=== PATIENT | female | born 1965 | race Two or more races ===

== ENCOUNTER 2017-11-23 18:49 | Emergency (ER) | payer MEDICARE, MEDICAID ==
[~2017-11-23] VITALS: Ht 157.5 cm; Wt 77.2 kg
[~2017-11-23 18:49] MED LIST: MED LIST UNOBTAINABL; NO HOME MEDS
[2017-11-23 19:03] VITALS: BP 131/80
[2017-11-23] MEDS ORDERED: CEPH-572 PO (19:21)
[2017-11-23] MEDS ORDERED: SULF1TAB49 PO (19:21)
[2017-11-23] MEDS ORDERED: NAPR-56 PO (19:22)
== END 2017-11-23 19:32 | disposition home or self-care (01) ==
LOC: ER 18:50
DX: L03.116 Cellulitis of left lower limb (principal); E78.00 Pure hypercholesterolemia, unspecified; G89.29 Other chronic pain; F15.90 Other stimulant use, unspecified, uncomplicated; Z98.890 Other specified postprocedural states; Z79.2 Long term (current) use of antibiotics; Z79.899 Other long term (current) drug therapy
CPT/HCPCS: 99283

== ENCOUNTER 2019-01-29 12:57 | Emergency (ER) | payer MEDICARE, MEDICAID ==
[~2019-01-29] VITALS: Ht 154.9 cm; Wt 68.0 kg
[2019-01-29] MEDS ORDERED: PENI500T2 PO (13:57)
[2019-01-29 14:05] VITALS: BP 140/85
== END 2019-01-29 14:12 | disposition home or self-care (01) ==
LOC: ER 12:58
DX: K08.89 Other specified disorders of teeth and supporting structures (principal); E78.00 Pure hypercholesterolemia, unspecified; E07.9 Disorder of thyroid, unspecified; G89.29 Other chronic pain; F17.200 Nicotine dependence, unspecified, uncomplicated; F15.90 Other stimulant use, unspecified, uncomplicated; Z79.2 Long term (current) use of antibiotics
CPT/HCPCS: 99283

== ENCOUNTER 2019-04-02 14:43 | Emergency (ER) | payer MEDICARE, MEDICAID ==
[~2019-04-02] VITALS: Ht 165.1 cm; Wt 71.8 kg
[2019-04-02 15:27] LABS: BASOPHILS # (AUTO) 0.1 X10'3 (0-0.2); BASOPHILS % (AUTO) 0.7 % (0-1); EOSINOPHILS # (AUTO) 0.8 X10'3 (0-0.9); EOSINOPHILS % (AUTO) 8.2 % (0-6); HEMATOCRIT 42.3 % (35.0-45.0); LYMPHOCYTES # (AUTO) 3.4 X10'3 (1.1-4.8); LYMPHOCYTES % (AUTO) 36.3 % (21-51); MEAN CORPUSCULAR HEMOGLOBIN 27.1 PG (27.0-31.0); MEAN CORPUSCULAR HGB CONC 33.1 g/dL (33.0-36.5); MEAN CORPUSCULAR VOLUME 81.7 FL (78-98); MEAN PLATELET VOLUME 7.1 FL (7.4-10.4); MONOCYTES # (AUTO) 0.7 X10'3 (0-0.9); NEUTROPHILS # (AUTO) 4.5 X10'3 (1.8-7.7); NEUTROPHILS % (AUTO) 47.8 % (42-75); PLATELET COUNT 454 X10'3 (140-440); RED BLOOD COUNT 5.18 X10'6 (4.20-5.60); RED CELL DISTRIBUTION WIDTH 15.3 % (11.5-14.5); WHITE BLOOD COUNT 9.5 X10'3 (4.5-11.0)
[2019-04-02 15:38] LABS: ANION GAP 6 (8-16); BLOOD UREA NITROGEN 17 MG/DL (7-18); BUN/CREATININE RATIO 16.7 (6.6-38.0); CHLORIDE 101 MMOL/L (99-107); CREATININE 1.02 MG/DL (0.40-0.90); POTASSIUM 3.7 MMOL/L (3.5-5.1); SODIUM 138 MMOL/L (135-145); TOTAL CARBON DIOXIDE 31.2 MMOL/L (24-32)
[2019-04-02 15:39] LABS: ALANINE AMINOTRANSFERASE 54 U/L (12-78); ALBUMIN 3.3 G/DL (3.4-5.0); ALBUMIN/GLOBULIN RATIO 0.6 (1.1-1.5); ALKALINE PHOSPHATASE 141 IU/L (46-116); ASPARTATE AMINO TRANSFERASE 37 U/L (10-37); BILIRUBIN,TOTAL 0.4 MG/DL (0.1-1.0); CALCIUM 9.2 MG/DL (8.5-10.1); TOTAL PROTEIN 9.1 G/DL (6.4-8.2); eGFR 57 ML/MIN
[2019-04-02 15:44] LABS: GLUCOSE 119 MG/DL (70-104)
[2019-04-02] MEDS ORDERED: famotidine 20mg tablet PO ONE (16:05)
[2019-04-02 16:39] VITALS: BP 107/66
[2019-04-02 16:50] LABS: URINE METHADONE SCREEN NEGATIVE (Neg)
[2019-04-02 16:53] LABS: CLARITY,URINE CLOUDY (Clear); COLOR,URINE YELLOW (Yellow); GLUCOSE, URINE NEGATIVE (Neg); KETONES,URINE NEGATIVE (Neg); LEUKOCYTE ESTERASE ,URINE NEGATIVE (Neg); NITRITES, URINE NEGATIVE (Neg); OCCULT BLOOD,URINE SMALL (Neg); PROTEIN,URINE NEGATIVE (Neg); UROBILINOGEN,URINE 0.2 E.U/dL (0.2-1.0)
[2019-04-02 17:02] LABS: UA COLLECTION TYPE CLN CATCH MIDSTREAM; URINE AMPHETAMINE SCREEN POSITIVE (Neg); URINE BARBITUATE SCREEN NEGATIVE (Neg); URINE BENZODIAZEPINES SCREEN NEGATIVE (Neg); URINE CANNABINOID SCREEN NEGATIVE (Neg); URINE COCAINE SCREEN NEGATIVE (Neg); URINE OPIATE SCREEN NEGATIVE (Neg); URINE PHENCYCLIDINE SCREEN NEGATIVE (Neg)
[2019-04-02 17:08] LABS: BACTERIA,URINE 1+ /HPF (Neg); MUCUS STRANDS MANY /LPF (Neg); RBC,URINE 0-2 /HPF (0-2); SQUAMOUS EPITHELIAL CELL,UR MANY /LPF (FEW); WBC,URINE 0-4 /HPF (0-4)
[2019-04-02 17:33] LABS: LIPASE 205 U/L (73-393)
== END 2019-04-02 17:59 | disposition home or self-care (01) ==
LOC: ER 14:44
DX: K29.70 Gastritis, unspecified, without bleeding (principal); G89.29 Other chronic pain; F15.10 Other stimulant abuse, uncomplicated; R00.0 Tachycardia, unspecified; E78.00 Pure hypercholesterolemia, unspecified; Z98.890 Other specified postprocedural states
CPT/HCPCS: 36415; 80053; 80305; 81001; 83690; 85025; 85610; 93005; 99284

== ENCOUNTER 2019-08-03 21:56 | Emergency (ER) | payer MEDICARE, MEDICAID ==
[~2019-08-03] VITALS: Ht 152.4 cm; Wt 70.0 kg
[2019-08-03 22:54] LABS: BASOPHILS # (AUTO) 0.1 X10'3 (0-0.2); BASOPHILS % (AUTO) 0.7 % (0-1); EOSINOPHILS # (AUTO) 0.7 X10'3 (0-0.9); EOSINOPHILS % (AUTO) 7.8 % (0-6); HEMATOCRIT 39.2 % (35.0-45.0); HEMOGLOBIN 12.9 g/dl (12.0-16.0); LYMPHOCYTES # (AUTO) 3.4 X10'3 (1.1-4.8); LYMPHOCYTES % (AUTO) 38.2 % (21-51); MEAN CORPUSCULAR HEMOGLOBIN 26.4 PG (27.0-31.0); MEAN CORPUSCULAR VOLUME 80.1 FL (78-98); MONOCYTES # (AUTO) 0.9 X10'3 (0-0.9); MONOCYTES % (AUTO) 9.8 % (2-12); NEUTROPHILS # (AUTO) 3.9 X10'3 (1.8-7.7); NEUTROPHILS % (AUTO) 43.5 % (42-75); PLATELET COUNT 477 X10'3 (140-440); RED BLOOD COUNT 4.89 X10'6 (4.20-5.60); RED CELL DISTRIBUTION WIDTH 15.2 % (11.5-14.5); WHITE BLOOD COUNT 8.9 X10'3 (4.5-11.0)
[2019-08-03 23:09] LABS: ALANINE AMINOTRANSFERASE 32 U/L (12-78); ALBUMIN 3.4 G/DL (3.4-5.0); ALBUMIN/GLOBULIN RATIO 0.7 (1.1-1.5); ALKALINE PHOSPHATASE 118 IU/L (46-116); ANION GAP 5 (8-16); ASPARTATE AMINO TRANSFERASE 36 U/L (10-37); BILIRUBIN,TOTAL 0.4 MG/DL (0.1-1.0); BLOOD UREA NITROGEN 13 MG/DL (7-18); BUN/CREATININE RATIO 12.9 (6.6-38.0); CALCIUM 9.3 MG/DL (8.5-10.1); CHLORIDE 107 MMOL/L (99-107); CREATININE 1.01 MG/DL (0.40-0.90); GLUCOSE 89 MG/DL (70-104); LIPASE 143 U/L (73-393); POTASSIUM 4.1 MMOL/L (3.5-5.1); SODIUM 143 MMOL/L (135-145); TOTAL CARBON DIOXIDE 30.8 MMOL/L (24-32); TOTAL PROTEIN 8.3 G/DL (6.4-8.2); eGFR 57 ML/MIN
[2019-08-03 23:10] LABS: CLARITY,URINE SLIGHTLY CLOUDY (Clear); COLOR,URINE YELLOW (Yellow); GLUCOSE, URINE NEGATIVE (Neg); KETONES,URINE NEGATIVE (Neg); LEUKOCYTE ESTERASE ,URINE NEGATIVE (Neg); NITRITES, URINE NEGATIVE (Neg); OCCULT BLOOD,URINE SMALL (Neg); PROTEIN,URINE NEGATIVE (Neg); UROBILINOGEN,URINE 0.2 E.U/dL (0.2-1.0)
[2019-08-03 23:11] LABS: URINE HCG NEGATIVE (NEG)
[2019-08-03 23:18] LABS: UA COLLECTION TYPE CLN CATCH MIDSTREAM
[2019-08-03 23:23] LABS: BACTERIA,URINE 2+ /HPF (Neg); MUCUS STRANDS MANY /LPF (Neg); RBC,URINE 0-2 /HPF (0-2); SQUAMOUS EPITHELIAL CELL,UR MANY /LPF (FEW); WBC,URINE 0-4 /HPF (0-4)
[2019-08-04 00:15] VITALS: BP 125/89
== END 2019-08-04 00:12 | disposition home or self-care (01) ==
LOC: ER 21:57
DX: R10.12 Left upper quadrant pain (principal); R10.13 Epigastric pain; M54.5 Low back pain; R53.82 Chronic fatigue, unspecified; E78.00 Pure hypercholesterolemia, unspecified; G89.29 Other chronic pain; F15.90 Other stimulant use, unspecified, uncomplicated
CPT/HCPCS: 36415; 76700; 80053; 81001; 81025; 83690; 85025; 99284

== ENCOUNTER 2019-08-30 19:48 | Emergency (ER) | payer MEDICARE, MEDICAID ==
[~2019-08-30] VITALS: Ht 157.5 cm; Wt 69.0 kg
[2019-08-30 20:26] VITALS: BP 128/67
[2019-08-30] MEDS ORDERED: CLIN-97 PO (20:47)
[2019-08-30] MEDS ORDERED: fluconazole 150mg tablet PO ONE (20:50)
[2019-08-30] MEDS ORDERED: NYST1000 PO (20:50)
== END 2019-08-30 21:13 | disposition home or self-care (01) ==
LOC: ER 19:49
DX: S06.890A Other specified intracranial injury without loss of consciousness, initial encounter (principal); S02.5XXA Fracture of tooth (traumatic), initial encounter for closed fracture; K05.10 Chronic gingivitis, plaque induced; B37.9 Candidiasis, unspecified; K08.89 Other specified disorders of teeth and supporting structures; E78.00 Pure hypercholesterolemia, unspecified; G89.29 Other chronic pain; F15.90 Other stimulant use, unspecified, uncomplicated; Z98.890 Other specified postprocedural states; Z79.2 Long term (current) use of antibiotics; Z79.899 Other long term (current) drug therapy; X58.XXXA Exposure to other specified factors, initial encounter; Y93.89 Activity, other specified; Y92.89 Other specified places as the place of occurrence of the external cause; Y99.8 Other external cause status
CPT/HCPCS: 99283

== ENCOUNTER 2020-04-04 20:53 | Emergency (ER) | payer MEDICARE, MEDICAID ==
[~2020-04-04] VITALS: Ht 154.9 cm; Wt 70.0 kg
[~2020-04-04 20:53] MED LIST changes: +CLIN-97 PO
[2020-04-04 21:05] VITALS: BP 108/75
== END 2020-04-04 22:21 | disposition left against medical advice (07) ==
LOC: ER 20:53
DX: M54.9 Dorsalgia, unspecified (principal); M54.2 Cervicalgia; Z53.21 Procedure and treatment not carried out due to patient leaving prior to being seen by health care provider

== ENCOUNTER 2020-07-15 07:51 | Emergency (ER) | payer MEDICARE, MEDICAID ==
[~2020-07-15] VITALS: Ht 154.9 cm; Wt 70.0 kg
[2020-07-15 07:56] VITALS: BP 153/84
[2020-07-15] MEDS ORDERED: METH4TAB81 PO ×2 (08:11→08:43)
[2020-07-15] MEDS ORDERED: AMOX500C2 PO ×2 (08:11→08:43)
[2020-07-15] MEDS ORDERED: ONDA4TAB6 PO ×2 (08:11→08:43)
[2020-07-15] MEDS ORDERED: METR500T PO ×2 (08:11→08:43)
[2020-07-15] MEDS ORDERED: HYDR-3965 PO ×2 (08:11→08:43)
== END 2020-07-15 09:13 | disposition home or self-care (01) ==
LOC: ER 07:52
DX: S02.5XXA Fracture of tooth (traumatic), initial encounter for closed fracture (principal); K04.7 Periapical abscess without sinus; K08.89 Other specified disorders of teeth and supporting structures; K02.9 Dental caries, unspecified; J32.0 Chronic maxillary sinusitis; I96 Gangrene, not elsewhere classified; E78.00 Pure hypercholesterolemia, unspecified; G89.29 Other chronic pain; F15.90 Other stimulant use, unspecified, uncomplicated; Z98.890 Other specified postprocedural states; Z79.2 Long term (current) use of antibiotics; Z79.899 Other long term (current) drug therapy; X58.XXXA Exposure to other specified factors, initial encounter; Y93.89 Activity, other specified; Y92.89 Other specified places as the place of occurrence of the external cause; Y99.8 Other external cause status
CPT/HCPCS: 93005; 99283

== ENCOUNTER 2020-07-21 22:01 | Emergency (ER) | payer MEDICARE, MEDICAID ==
[~2020-07-21] VITALS: Ht 154.9 cm; Wt 70.0 kg
[~2020-07-21 22:01] MED LIST changes: +AMOX500C2 PO; +HYDR-3965 PO; +METH4TAB81 PO; +METR500T PO; +ONDA4TAB6 PO
--- NOTE | 2020-07-21 22:20 | NUR ---
LAST METH USE TODAY AT 1600 . METHOD OF INJESTION SMOKED
[2020-07-21] MEDS ORDERED: aspirin 81mg tab.chew PO ONE (23:15)
[2020-07-21 23:23] LABS: BASOPHILS # (AUTO) 0.1 X10'3 (0-0.2); BASOPHILS % (AUTO) 0.8 % (0-1); EOSINOPHILS # (AUTO) 0.8 X10'3 (0-0.9); EOSINOPHILS % (AUTO) 7.1 % (0-6); HEMATOCRIT 42.8 % (35.0-45.0); HEMOGLOBIN 14.1 g/dl (12.0-16.0); LYMPHOCYTES # (AUTO) 3.8 X10'3 (1.1-4.8); LYMPHOCYTES % (AUTO) 33.3 % (21-51); MEAN CORPUSCULAR HEMOGLOBIN 26.6 PG (27.0-31.0); MEAN CORPUSCULAR HGB CONC 32.9 g/dL (33.0-36.5); MEAN CORPUSCULAR VOLUME 80.8 FL (78-98); MEAN PLATELET VOLUME 8.1 FL (7.4-10.4); MONOCYTES # (AUTO) 1.1 X10'3 (0-0.9); MONOCYTES % (AUTO) 9.3 % (2-12); NEUTROPHILS # (AUTO) 5.6 X10'3 (1.8-7.7); NEUTROPHILS % (AUTO) 49.5 % (42-75); PLATELET COUNT 514 X10'3 (140-440); RED CELL DISTRIBUTION WIDTH 15.6 % (11.5-14.5); WHITE BLOOD COUNT 11.3 X10'3 (4.5-11.0)
[2020-07-21 23:31] LABS: ALANINE AMINOTRANSFERASE 44 U/L (12-78); ALBUMIN 3.3 G/DL (3.4-5.0); ALBUMIN/GLOBULIN RATIO 0.6 (1.1-1.5); ALKALINE PHOSPHATASE 161 IU/L (46-116); ANION GAP 10 (8-16); ASPARTATE AMINO TRANSFERASE 40 U/L (10-37); BILIRUBIN,TOTAL 0.3 MG/DL (0.1-1.0); BLOOD UREA NITROGEN 18 MG/DL (7-18); BUN/CREATININE RATIO 16.8 (6.6-38.0); CALCIUM 9.1 MG/DL (8.5-10.1); CHLORIDE 103 MMOL/L (99-107); CREATININE 1.07 MG/DL (0.40-0.90); POTASSIUM 3.5 MMOL/L (3.5-5.1); SODIUM 142 MMOL/L (135-145); TOTAL CARBON DIOXIDE 29.3 MMOL/L (24-32); TOTAL PROTEIN 8.9 G/DL (6.4-8.2); eGFR 53 ML/MIN
[2020-07-21 23:40] LABS: MAGNESIUM 2.3 MG/DL (1.5-2.4)
[2020-07-22 00:05] LABS: GLUCOSE 88 MG/DL (70-104)
[2020-07-22 03:38] VITALS: BP 117/77
== END 2020-07-22 03:39 | disposition home or self-care (01) ==
LOC: ER 22:02
DX: R07.89 Other chest pain (principal); R42 Dizziness and giddiness; N18.9 Chronic kidney disease, unspecified; E78.00 Pure hypercholesterolemia, unspecified; E03.9 Hypothyroidism, unspecified; G89.29 Other chronic pain; F15.90 Other stimulant use, unspecified, uncomplicated; Z98.890 Other specified postprocedural states; Z79.2 Long term (current) use of antibiotics; Z79.899 Other long term (current) drug therapy
CPT/HCPCS: 36415; 71045; 80053; 83735; 83880; 84443; 84484; 85025; 93005; 99285

== ENCOUNTER 2021-09-14 18:51 | Emergency (ER) | payer MEDICARE, MEDICAID ==
[~2021-09-14] VITALS: Ht 154.9 cm; Wt 72.7 kg
[2021-09-14 18:57] VITALS: BP 129/82
[2021-09-14] MEDS ORDERED: orphenadrine citrate 60mg/2ml inj. IM ONE (20:20)
[2021-09-14] MEDS ORDERED: ketorolac trometh inj. 60 MG/2 ML VIAL IM ONE (20:20)
[2021-09-14] MEDS ORDERED: HYDROcodone/acetaminophen 10/325mg tab PO ONE (20:20)
--- NOTE | 2021-09-14 20:50 | NUR ---
po med given im x2 given
[2021-09-14] MEDS ORDERED: NAPR-56 PO (21:07)
[2021-09-14] MEDS ORDERED: HYDR-3965 PO (21:07)
[2021-09-14] MEDS ORDERED: ORPH100T2 PO (21:07)
--- NOTE | 2021-09-14 21:22 | NUR ---
soft c-collar applied pt states she feels better.
== END 2021-09-14 21:39 | disposition home or self-care (01) ==
LOC: ER 18:52
DX: M48.02 Spinal stenosis, cervical region (principal); M54.12 Radiculopathy, cervical region; M25.511 Pain in right shoulder; E78.00 Pure hypercholesterolemia, unspecified; E03.9 Hypothyroidism, unspecified; G89.29 Other chronic pain; F15.90 Other stimulant use, unspecified, uncomplicated; Z98.890 Other specified postprocedural states; Z79.2 Long term (current) use of antibiotics; Z79.899 Other long term (current) drug therapy
CPT/HCPCS: 72040; 73030; 96372; 99284; J1885; J2360

== ENCOUNTER 2022-01-03 00:30 | Emergency (ER) | payer MEDICARE, MEDICAID ==
[~2022-01-03] VITALS: Ht 157.5 cm; Wt 65.9 kg
[~2022-01-03 00:30] MED LIST changes: +ORPH100T2 PO
[2022-01-03 00:41] VITALS: BP 134/80
[2022-01-03] MEDS ORDERED: ibuprofen 200mg tablet PO ONE (00:55)
--- NOTE | 2022-01-03 01:06 | NUR ---
po med gvien
[2022-01-03] MEDS ORDERED: NIRM1TAB PO (01:50)
--- NOTE | 2022-01-03 01:59 | NUR ---
iv dc'd pt being discharged dressing applied
== END 2022-01-03 02:00 | disposition home or self-care (01) ==
LOC: ER 00:30
DX: U07.1 COVID-19 (principal); E03.9 Hypothyroidism, unspecified; G89.29 Other chronic pain; M54.50 Low back pain, unspecified; F15.20 Other stimulant dependence, uncomplicated
CPT/HCPCS: 87502; 87503; 87635; 99283; C9803

== ENCOUNTER 2022-06-15 15:31 | Emergency (ER) | payer MEDICARE, MEDICAID ==
[~2022-06-15] VITALS: Ht 154.9 cm; Wt 53.6 kg
[~2022-06-15 15:31] MED LIST changes: +NIRM1TAB PO
[2022-06-15 16:26] LABS: CLARITY,URINE SLIGHTLY CLOUDY (Clear); COLOR,URINE YELLOW (Yellow); GLUCOSE, URINE NEGATIVE (Neg); KETONES,URINE NEGATIVE (Neg); LEUKOCYTE ESTERASE ,URINE NEGATIVE (Neg); NITRITES, URINE NEGATIVE (Neg); OCCULT BLOOD,URINE SMALL (Neg); PROTEIN,URINE 100 mg/dl (Neg); UROBILINOGEN,URINE 0.2 E.U/dL (0.2-1.0)
[2022-06-15 16:29] LABS: URINE HCG NEGATIVE (NEG)
[2022-06-15 16:31] LABS: UA COLLECTION TYPE CLN CATCH MIDSTREAM
[2022-06-15 16:35] LABS: HEMOGLOBIN 13.5 g/dl (12.0-16.0)
[2022-06-15 16:36] LABS: BASOPHILS # (AUTO) 0.1 X10'3 (0-0.2); BASOPHILS % (AUTO) 0.9 % (0-1); EOSINOPHILS # (AUTO) 0.4 X10'3 (0-0.9); EOSINOPHILS % (AUTO) 5.6 % (0-6); HEMATOCRIT 41.8 % (35.0-45.0); LYMPHOCYTES # (AUTO) 2.8 X10'3 (1.1-4.8); LYMPHOCYTES % (AUTO) 35.5 % (21-51); MEAN CORPUSCULAR HEMOGLOBIN 25.8 PG (27.0-31.0); MEAN CORPUSCULAR HGB CONC 32.2 g/dL (33.0-36.5); MEAN CORPUSCULAR VOLUME 80.2 FL (78-98); MONOCYTES # (AUTO) 0.9 X10'3 (0-0.9); MONOCYTES % (AUTO) 11.2 % (2-12); NEUTROPHILS # (AUTO) 3.7 X10'3 (1.8-7.7); NEUTROPHILS % (AUTO) 46.8 % (42-75); PLATELET COUNT 605 X10'3 (140-440); RED BLOOD COUNT 5.22 X10'6 (4.20-5.60); WHITE BLOOD COUNT 7.9 X10'3 (4.5-11.0)
[2022-06-15 16:45] LABS: HYALINE CASTS 0-3 /LPF (NEGATIVE); MUCUS STRANDS MANY /LPF (Neg)
[2022-06-15 16:46] LABS: BACTERIA,URINE FEW /HPF (Neg)
[2022-06-15 16:47] LABS: SQUAMOUS EPITHELIAL CELL,UR MODERATE /LPF (FEW)
[2022-06-15 16:53] LABS: ALANINE AMINOTRANSFERASE 54 U/L (12-78); ALBUMIN/GLOBULIN RATIO 0.5 (1.1-1.5); ALKALINE PHOSPHATASE 251 IU/L (46-116); ANION GAP 5 (8-16); ASPARTATE AMINO TRANSFERASE 69 U/L (10-37); BILIRUBIN,TOTAL 0.4 MG/DL (0.1-1.0); BLOOD UREA NITROGEN 11 MG/DL (7-18); BUN/CREATININE RATIO 14.5 (6.6-38.0); CALCIUM 9.5 MG/DL (8.5-10.1); CHLORIDE 99 MMOL/L (99-107); CREATININE 0.76 MG/DL (0.40-0.90); LIPASE 194 U/L (73-393); POTASSIUM 4.2 MMOL/L (3.5-5.1); SODIUM 138 MMOL/L (135-145); TOTAL CARBON DIOXIDE 34.1 MMOL/L (24-32); TOTAL PROTEIN 9.4 G/DL (6.4-8.2); eGFR 79 ML/MIN
[2022-06-15 16:57] LABS: GLUCOSE 94 MG/DL (70-104)
[2022-06-15] MEDS ORDERED: normal saline 1000ML IV soln IVB ONE (23:10)
[2022-06-16 01:12] VITALS: BP 105/65
== END 2022-06-16 01:23 | disposition home or self-care (01) ==
LOC: ER 15:31
DX: E86.0 Dehydration (principal); R32 Unspecified urinary incontinence; R10.9 Unspecified abdominal pain; E03.9 Hypothyroidism, unspecified; G89.29 Other chronic pain; M54.9 Dorsalgia, unspecified; E78.00 Pure hypercholesterolemia, unspecified; Z79.899 Other long term (current) drug therapy; Z79.1 Long term (current) use of non-steroidal anti-inflammatories (NSAID); Z79.2 Long term (current) use of antibiotics
CPT/HCPCS: 36415; 80053; 81001; 81025; 83690; 85025; 87088; 96360; 99283; J7030

== ENCOUNTER 2022-06-22 12:17 | Emergency (ER) | payer OTHER, MEDICAID ==
[~2022-06-22] VITALS: Ht 156.8 cm; Wt 53.6 kg
[2022-06-22 13:08] LABS: BASOPHILS # (AUTO) 0.1 X10'3 (0-0.2); BASOPHILS % (AUTO) 0.7 % (0-1); EOSINOPHILS # (AUTO) 0.4 X10'3 (0-0.9); EOSINOPHILS % (AUTO) 3.8 % (0-6); HEMATOCRIT 39.9 % (35.0-45.0); HEMOGLOBIN 12.8 g/dl (12.0-16.0); LYMPHOCYTES # (AUTO) 3.4 X10'3 (1.1-4.8); LYMPHOCYTES % (AUTO) 36.5 % (21-51); MEAN CORPUSCULAR HEMOGLOBIN 25.9 PG (27.0-31.0); MEAN CORPUSCULAR HGB CONC 32.1 g/dL (33.0-36.5); MEAN CORPUSCULAR VOLUME 80.8 FL (78-98); MEAN PLATELET VOLUME 7.8 FL (7.4-10.4); MONOCYTES % (AUTO) 11.2 % (2-12); NEUTROPHILS # (AUTO) 4.4 X10'3 (1.8-7.7); NEUTROPHILS % (AUTO) 47.8 % (42-75); PLATELET COUNT 508 X10'3 (140-440); RED BLOOD COUNT 4.94 X10'6 (4.20-5.60); RED CELL DISTRIBUTION WIDTH 16.8 % (11.5-14.5); WHITE BLOOD COUNT 9.3 X10'3 (4.5-11.0)
[2022-06-22 13:28] LABS: ALANINE AMINOTRANSFERASE 54 U/L (12-78); ALBUMIN 2.9 G/DL (3.4-5.0); ALBUMIN/GLOBULIN RATIO 0.5 (1.1-1.5); ALKALINE PHOSPHATASE 210 IU/L (46-116); ANION GAP 9 (8-16); ASPARTATE AMINO TRANSFERASE 64 U/L (10-37); BILIRUBIN,TOTAL 0.5 MG/DL (0.1-1.0); BLOOD UREA NITROGEN 9 MG/DL (7-18); BUN/CREATININE RATIO 12.3 (6.6-38.0); CALCIUM 9.1 MG/DL (8.5-10.1); CHLORIDE 99 MMOL/L (99-107); CREATININE 0.73 MG/DL (0.40-0.90); MAGNESIUM 1.9 MG/DL (1.5-2.4); POTASSIUM 3.6 MMOL/L (3.5-5.1); SODIUM 139 MMOL/L (135-145); TOTAL CARBON DIOXIDE 31.4 MMOL/L (24-32); TOTAL PROTEIN 8.5 G/DL (6.4-8.2); eGFR 83 ML/MIN
[2022-06-22 13:30] LABS: GLUCOSE 85 MG/DL (70-104)
[2022-06-22 13:57] VITALS: BP 109/67
[2022-06-22 15:09] LABS: CLARITY,URINE SLIGHTLY CLOUDY (Clear); COLOR,URINE YELLOW (Yellow); GLUCOSE, URINE NEGATIVE (Neg); KETONES,URINE 15 mg/dl (Neg); LEUKOCYTE ESTERASE ,URINE NEGATIVE (Neg); NITRITES, URINE NEGATIVE (Neg); OCCULT BLOOD,URINE TRACE-INTACT (Neg); PROTEIN,URINE 100 mg/dl (Neg); UROBILINOGEN,URINE 0.2 E.U/dL (0.2-1.0)
[2022-06-22 15:15] LABS: UA COLLECTION TYPE NON-SPECIFIED
[2022-06-22 15:17] LABS: SQUAMOUS EPITHELIAL CELL,UR FEW /LPF (FEW)
[2022-06-22 15:18] LABS: MUCUS STRANDS MANY /LPF (Neg)
[2022-06-22 15:21] LABS: BACTERIA,URINE FEW /HPF (Neg)
[2022-06-22 15:24] LABS: TRANSITIONAL EPI CELLS,URINE FEW /HPF
== END 2022-06-22 15:10 | disposition home or self-care (01) ==
LOC: ER 12:18
DX: R30.0 Dysuria (principal); R53.83 Other fatigue; R53.1 Weakness; R10.30 Lower abdominal pain, unspecified; R07.89 Other chest pain; R82.71 Bacteriuria; R74.8 Abnormal levels of other serum enzymes; E78.00 Pure hypercholesterolemia, unspecified; E03.9 Hypothyroidism, unspecified; G89.29 Other chronic pain; M54.50 Low back pain, unspecified
CPT/HCPCS: 36415; 80053; 81001; 83735; 83880; 84484; 85025; 87088; 99283

== ENCOUNTER 2022-08-07 17:40 | Emergency (ER) | payer OTHER, MEDICAID ==
[~2022-08-07] VITALS: Ht 154.9 cm; Wt 52.1 kg
[2022-08-07] MEDS ORDERED: ringers solution, lactated 1000ml IV soln IV ONE ×2 (21:30)
[2022-08-07 21:32] LABS: BASOPHILS # (AUTO) 0.1 X10'3 (0-0.2); BASOPHILS % (AUTO) 0.7 % (0-1); EOSINOPHILS # (AUTO) 0.4 X10'3 (0-0.9); EOSINOPHILS % (AUTO) 4.3 % (0-6); HEMATOCRIT 39.8 % (35.0-45.0); HEMOGLOBIN 12.8 g/dl (12.0-16.0); LYMPHOCYTES # (AUTO) 3.1 X10'3 (1.1-4.8); LYMPHOCYTES % (AUTO) 36.3 % (21-51); MEAN CORPUSCULAR HEMOGLOBIN 25.7 PG (27.0-31.0); MEAN CORPUSCULAR HGB CONC 32.3 g/dL (33.0-36.5); MEAN CORPUSCULAR VOLUME 79.6 FL (78-98); MEAN PLATELET VOLUME 7.4 FL (7.4-10.4); MONOCYTES # (AUTO) 1.1 X10'3 (0-0.9); MONOCYTES % (AUTO) 13.1 % (2-12); NEUTROPHILS # (AUTO) 3.9 X10'3 (1.8-7.7); NEUTROPHILS % (AUTO) 45.6 % (42-75); PLATELET COUNT 461 X10'3 (140-440); RED CELL DISTRIBUTION WIDTH 16.6 % (11.5-14.5); WHITE BLOOD COUNT 8.4 X10'3 (4.5-11.0)
[2022-08-07 21:44] LABS: ALANINE AMINOTRANSFERASE 49 U/L (12-78); ALBUMIN 2.8 G/DL (3.4-5.0); ALBUMIN/GLOBULIN RATIO 0.5 (1.1-1.5); ALKALINE PHOSPHATASE 260 IU/L (46-116); ANION GAP 4 (8-16); ASPARTATE AMINO TRANSFERASE 62 U/L (10-37); BILIRUBIN,TOTAL 0.4 MG/DL (0.1-1.0); BLOOD UREA NITROGEN 28 MG/DL (7-18); BUN/CREATININE RATIO 45.9 (6.6-38.0); CALCIUM 9.5 MG/DL (8.5-10.1); CHLORIDE 99 MMOL/L (99-107); CREATININE 0.61 MG/DL (0.40-0.90); LIPASE 227 U/L (73-393); POTASSIUM 4.2 MMOL/L (3.5-5.1); SODIUM 139 MMOL/L (135-145); TOTAL CARBON DIOXIDE 36.4 MMOL/L (24-32); TOTAL PROTEIN 8.5 G/DL (6.4-8.2); eGFR > 90 ML/MIN
[2022-08-07 21:47] LABS: GLUCOSE 94 MG/DL (70-104)
[2022-08-08 00:06] VITALS: BP 127/70
== END 2022-08-08 00:08 | disposition home or self-care (01) ==
LOC: ER 17:41
DX: E86.0 Dehydration (principal); E78.00 Pure hypercholesterolemia, unspecified; E03.9 Hypothyroidism, unspecified; G89.29 Other chronic pain; Z98.890 Other specified postprocedural states; Z79.899 Other long term (current) drug therapy
CPT/HCPCS: 36415; 80053; 83690; 85025; 96360; 99284; J7120

== ENCOUNTER 2022-08-12 23:05 | Emergency (ER) | payer OTHER, MEDICAID ==
[~2022-08-12] VITALS: Ht 154.9 cm; Wt 47.7 kg
[2022-08-12 23:49] LABS: BASOPHILS % (AUTO) 0.5 % (0-1); EOSINOPHILS # (AUTO) 0.2 X10'3 (0-0.9); EOSINOPHILS % (AUTO) 2.1 % (0-6); HEMATOCRIT 39.1 % (35.0-45.0); LYMPHOCYTES % (AUTO) 38.5 % (21-51); MEAN CORPUSCULAR HEMOGLOBIN 26.4 PG (27.0-31.0); MEAN CORPUSCULAR HGB CONC 33.3 g/dL (33.0-36.5); MEAN CORPUSCULAR VOLUME 79.3 FL (78-98); MEAN PLATELET VOLUME 7.6 FL (7.4-10.4); MONOCYTES # (AUTO) 0.9 X10'3 (0-0.9); MONOCYTES % (AUTO) 8.9 % (2-12); NEUTROPHILS # (AUTO) 5.2 X10'3 (1.8-7.7); PLATELET COUNT 544 X10'3 (140-440); RED BLOOD COUNT 4.93 X10'6 (4.20-5.60); RED CELL DISTRIBUTION WIDTH 16.1 % (11.5-14.5); WHITE BLOOD COUNT 10.4 X10'3 (4.5-11.0)
[2022-08-13 00:03] LABS: ALANINE AMINOTRANSFERASE 47 U/L (12-78); ALBUMIN/GLOBULIN RATIO 0.5 (1.1-1.5); ALKALINE PHOSPHATASE 235 IU/L (46-116); ANION GAP 4 (8-16); ASPARTATE AMINO TRANSFERASE 55 U/L (10-37); BILIRUBIN,TOTAL 0.7 MG/DL (0.1-1.0); BLOOD UREA NITROGEN 18 MG/DL (7-18); BUN/CREATININE RATIO 26.5 (6.6-38.0); CALCIUM 9.4 MG/DL (8.5-10.1); CHLORIDE 97 MMOL/L (99-107); CREATININE 0.68 MG/DL (0.40-0.90); LIPASE 140 U/L (73-393); POTASSIUM 3.6 MMOL/L (3.5-5.1); SODIUM 136 MMOL/L (135-145); TOTAL CARBON DIOXIDE 35.1 MMOL/L (24-32); TOTAL PROTEIN 8.9 G/DL (6.4-8.2); eGFR 90 ML/MIN
[2022-08-13 00:04] LABS: GLUCOSE 93 MG/DL (70-104)
[2022-08-13] MEDS ORDERED: loperamide 2mg capsule PO ONE (05:30)
[2022-08-13] MEDS ORDERED: normal saline 1000ML IV soln IVB ONE (05:30)
[2022-08-13] MEDS ORDERED: METO10TA3 PO (05:32)
[2022-08-13] MEDS ORDERED: LOPE-144 PO (05:32)
[2022-08-13 05:49] VITALS: BP 105/72
--- NOTE | 2022-08-13 07:39 | NUR ---
Bolus IV NS completed.
== END 2022-08-13 07:59 | disposition home or self-care (01) ==
LOC: ER 23:06
DX: R19.7 Diarrhea, unspecified (principal); E86.0 Dehydration; E78.00 Pure hypercholesterolemia, unspecified; E03.9 Hypothyroidism, unspecified; G89.29 Other chronic pain; M54.50 Low back pain, unspecified
CPT/HCPCS: 36415; 80053; 83690; 85025; 96360; 96361; 99284; J7030

== ENCOUNTER 2024-02-03 12:36 | Emergency (ER) | payer OTHER, MEDICAID ==
[~2024-02-03] VITALS: Ht 154.9 cm; Wt 49.2 kg
[~2024-02-03 12:36] MED LIST changes: -AMOX500C2 PO; -CLIN-97 PO; +LEVO112C4 PO; -MED LIST UNOBTAINABL; -METH4TAB81 PO; -METR500T PO; -NIRM1TAB PO; -NO HOME MEDS; -ONDA4TAB6 PO; -ORPH100T2 PO
[2024-02-03 13:10] LABS: BASOPHILS % (AUTO) 0.4 % (0-1); EOSINOPHILS # (AUTO) 0.2 X10'3 (0-0.9); EOSINOPHILS % (AUTO) 2.4 % (0-6); HEMATOCRIT 37.9 % (35.0-45.0); HEMOGLOBIN 12.1 g/dl (12.0-16.0); LYMPHOCYTES # (AUTO) 2.5 X10'3 (1.1-4.8); LYMPHOCYTES % (AUTO) 31.7 % (21-51); MEAN CORPUSCULAR HEMOGLOBIN 26.1 PG (27.0-31.0); MEAN CORPUSCULAR HGB CONC 31.8 g/dL (33.0-36.5); MEAN PLATELET VOLUME 7.4 FL (7.4-10.4); MONOCYTES # (AUTO) 0.9 X10'3 (0-0.9); MONOCYTES % (AUTO) 11.4 % (2-12); NEUTROPHILS # (AUTO) 4.2 X10'3 (1.8-7.7); NEUTROPHILS % (AUTO) 54.1 % (42-75); PLATELET COUNT 413 X10'3 (140-440); RED BLOOD COUNT 4.62 X10'6 (4.20-5.60); RED CELL DISTRIBUTION WIDTH 16.6 % (11.5-14.5); WHITE BLOOD COUNT 7.7 X10'3 (4.5-11.0)
[2024-02-03 13:19] LABS: ALANINE AMINOTRANSFERASE 94 U/L (12-78); ALBUMIN 2.8 G/DL (3.4-5.0); ALBUMIN/GLOBULIN RATIO 0.5 (1.1-1.5); ALKALINE PHOSPHATASE 274 IU/L (46-116); ANION GAP 2 (8-16); ASPARTATE AMINO TRANSFERASE 81 U/L (10-37); BILIRUBIN,TOTAL 0.4 MG/DL (0.1-1.0); BLOOD UREA NITROGEN 22 MG/DL (7-18); CALCIUM 9.3 MG/DL (8.5-10.1); CHLORIDE 100 MMOL/L (99-107); CREATININE 0.71 MG/DL (0.40-0.90); POTASSIUM 4.5 MMOL/L (3.5-5.1); SODIUM 140 MMOL/L (135-145); TOTAL PROTEIN 8.4 G/DL (6.4-8.2); eCRCL 66 ML/MIN; eGFR 85 ML/MIN
[2024-02-03 13:25] LABS: PRO BRAIN NATRIURETIC PEPTIDE 82 PG/ML (0-125)
[2024-02-03 13:28] LABS: GLUCOSE 86 MG/DL (70-104)
[2024-02-03 15:16] VITALS: BP 119/76; PULSE 87; RESP 16; O2SAT 97
[2024-02-03 15:31] LABS: ABG BASE EXCESS 7.5 mmol/L (-2.0-2.0); ABG HCO3 33.5 mmol/L (22.0-26.0); ABG OXYGEN SATURATION 95.2 % (92-98.5); ABG PCO2 (T) 52.3 mmHg (32.0-45.0); ABG PH (T) 7.421 (7.350-7.450); ABG PO2 (T) 74.9 mmHg (75.0-100.0); ALLEN'S TEST POSITIVE; FCOHb 0.3 % (0.5-1.5); FHHb 4.8 % (0.0-5.0); FMetHb 0.4 % (0.0-1.5); FO2Hb 94.5 % (94-97); PATIENT TEMPERATURE 36.5; TOTAL HEMOGLOBIN 12.1 G/dl (12.0-16.0)
[2024-02-03 16:00] VITALS: TEMP 97.6
== END 2024-02-03 15:48 | disposition home or self-care (01) ==
LOC: ER 12:37
DX: R06.03 Acute respiratory distress (principal); G58.8 Other specified mononeuropathies; R06.02 Shortness of breath; J44.9 Chronic obstructive pulmonary disease, unspecified; E78.00 Pure hypercholesterolemia, unspecified; E03.9 Hypothyroidism, unspecified; G89.29 Other chronic pain; M54.9 Dorsalgia, unspecified; Z98.890 Other specified postprocedural states; Z79.899 Other long term (current) drug therapy
CPT/HCPCS: 36415; 36600; 71045; 80053; 82803; 83880; 84484; 85018; 85025; 93005; 99285

== ENCOUNTER 2024-04-06 14:25 | Outpatient (CLI) | payer MEDICARE, MEDICAID | END 2024-04-06 23:59 | disposition home or self-care (01) | LOC: RAD 14:25 | PROVIDERS: ATTEND Internal Medicine | DX: J96.21 Acute and chronic respiratory failure with hypoxia (principal); J96.22 Acute and chronic respiratory failure with hypercapnia; G72.9 Myopathy, unspecified | CPT/HCPCS: 71250 ==

== ENCOUNTER 2024-04-28 18:50 | Emergency (ER) | payer MEDICARE, MEDICAID ==
[~2024-04-28] VITALS: Ht 157.5 cm; Wt 51.0 kg
[2024-04-28 19:10] LABS: BASOPHILS % (AUTO) 0.2 % (0-1); EOSINOPHILS # (AUTO) 0.2 X10'3 (0-0.9); EOSINOPHILS % (AUTO) 2.2 % (0-6); HEMATOCRIT 37.9 % (35.0-45.0); HEMOGLOBIN 12.4 g/dl (12.0-16.0); LYMPHOCYTES % (AUTO) 34.9 % (21-51); MEAN CORPUSCULAR HEMOGLOBIN 25.2 PG (27.0-31.0); MEAN CORPUSCULAR HGB CONC 32.6 g/dL (33.0-36.5); MEAN CORPUSCULAR VOLUME 77.3 FL (78-98); MEAN PLATELET VOLUME 6.8 FL (7.4-10.4); MONOCYTES # (AUTO) 0.9 X10'3 (0-0.9); MONOCYTES % (AUTO) 10.9 % (2-12); NEUTROPHILS # (AUTO) 4.5 X10'3 (1.8-7.7); NEUTROPHILS % (AUTO) 51.8 % (42-75); PLATELET COUNT 519 X10'3 (140-440); RED BLOOD COUNT 4.91 X10'6 (4.20-5.60); RED CELL DISTRIBUTION WIDTH 15.9 % (11.5-14.5); WHITE BLOOD COUNT 8.7 X10'3 (4.5-11.0)
[2024-04-28 19:24] LABS: ALANINE AMINOTRANSFERASE 77 U/L (12-78); ALBUMIN 2.6 G/DL (3.4-5.0); ALBUMIN/GLOBULIN RATIO 0.4 (1.1-1.5); ALKALINE PHOSPHATASE 232 IU/L (46-116); ANION GAP 2 (8-16); ASPARTATE AMINO TRANSFERASE 88 U/L (10-37); BILIRUBIN,TOTAL 0.3 MG/DL (0.1-1.0); BLOOD UREA NITROGEN 16 MG/DL (7-18); BUN/CREATININE RATIO 21.6 (10.0-20.0); CALCIUM 8.7 MG/DL (8.5-10.1); CHLORIDE 97 MMOL/L (99-107); CREATININE 0.74 MG/DL (0.40-0.90); POTASSIUM 4.2 MMOL/L (3.5-5.1); SODIUM 137 MMOL/L (135-145); TOTAL CARBON DIOXIDE 38.4 MMOL/L (24-32); eCRCL 66 ML/MIN; eGFR 81 ML/MIN
[2024-04-28 19:32] LABS: PRO BRAIN NATRIURETIC PEPTIDE 77 PG/ML (0-125)
[2024-04-28 19:34] LABS: GLUCOSE 104 MG/DL (70-104)
[2024-04-28 20:22] LABS: ABG HCO3 35.8 mmol/L (21.0-28.0); ABG OXYGEN SATURATION 94.2 % (94.0-98.0); ABG PCO2 (T) 58.5 mmHg (32.0-45.0); ABG PH (T) 7.403 (7.350-7.450); ABG PO2 (T) 73.1 mmHg (83.0-108.0); ALLEN'S TEST POSITIVE; FCOHb 0.1 % (0.5-1.5); FHHb 5.8 % (0.0-5.0); FO2Hb 94.1 % (94.0-98.0); MODE ROOM AIR; PATIENT TEMPERATURE 36.9; TOTAL HEMOGLOBIN 12.9 G/dl (12.0-16.0)
[2024-04-28 22:39] LABS: CREATINE KINASE 1626 U/L (26-192)
[2024-04-28 22:55] VITALS: TEMP 98.7
[2024-04-28] MEDS: dexamethasone sod phosphate 10mg/ml inj IV STA (22:57)
[2024-04-29] MEDS ORDERED: PRED20TA PO (00:22)
[2024-04-29 00:40] VITALS: BP 122/46; PULSE 90; RESP 16; O2SAT 98
== END 2024-04-29 00:51 | disposition home or self-care (01) ==
LOC: ER 18:50
DX: R06.02 Shortness of breath (principal); R53.1 Weakness; E03.9 Hypothyroidism, unspecified; E78.00 Pure hypercholesterolemia, unspecified; Z88.5 Allergy status to narcotic agent; Z20.822 Contact with and (suspected) exposure to COVID-19
CPT/HCPCS: 36415; 36600; 71045; 80053; 82550; 82803; 83880; 84484; 85018; 85025; 87811; 93005; 96374; 99285; A4620; J1100

== ENCOUNTER 2024-04-30 12:26 | Emergency (ER) | payer MEDICARE, MEDICAID ==
[~2024-04-30] VITALS: Ht 167.6 cm; Wt 50.0 kg
[~2024-04-30 12:26] MED LIST changes: +PRED20TA PO
[2024-04-30] MEDS: ondansetron/PF 4mg/2ml inj IV ONE (12:55)
[2024-04-30 13:34] LABS: BASOPHILS % (AUTO) 0.1 % (0-1); EOSINOPHILS % (AUTO) 0.1 % (0-6); HEMATOCRIT 38.6 % (35.0-45.0); HEMOGLOBIN 12.3 g/dl (12.0-16.0); LYMPHOCYTES # (AUTO) 1.7 X10'3 (1.1-4.8); LYMPHOCYTES % (AUTO) 17.4 % (21-51); MEAN CORPUSCULAR HGB CONC 31.9 g/dL (33.0-36.5); MEAN CORPUSCULAR VOLUME 78.5 FL (78-98); MEAN PLATELET VOLUME 7.4 FL (7.4-10.4); MONOCYTES # (AUTO) 0.9 X10'3 (0-0.9); MONOCYTES % (AUTO) 9.8 % (2-12); NEUTROPHILS % (AUTO) 72.6 % (42-75); PLATELET COUNT 499 X10'3 (140-440); RED BLOOD COUNT 4.91 X10'6 (4.20-5.60); WHITE BLOOD COUNT 9.6 X10'3 (4.5-11.0)
[2024-04-30 14:01] LABS: ALANINE AMINOTRANSFERASE 64 U/L (12-78); ALBUMIN 2.7 G/DL (3.4-5.0); ALBUMIN/GLOBULIN RATIO 0.4 (1.1-1.5); ALKALINE PHOSPHATASE 212 IU/L (46-116); ANION GAP 1 (8-16); ASPARTATE AMINO TRANSFERASE 64 U/L (10-37); BILIRUBIN,TOTAL 0.2 MG/DL (0.1-1.0); BLOOD UREA NITROGEN 21 MG/DL (7-18); BUN/CREATININE RATIO 38.2 (10.0-20.0); CALCIUM 8.6 MG/DL (8.5-10.1); CHLORIDE 101 MMOL/L (99-107); CREATININE 0.55 MG/DL (0.40-0.90); POTASSIUM 4.4 MMOL/L (3.5-5.1); SODIUM 139 MMOL/L (135-145); TOTAL PROTEIN 8.8 G/DL (6.4-8.2); eCRCL 89 ML/MIN; eGFR > 90 ML/MIN
[2024-04-30 14:02] LABS: CREATINE KINASE 699 U/L (26-192)
[2024-04-30 14:07] LABS: GLUCOSE 72 MG/DL (70-104)
[2024-04-30 15:08] LABS: BILIRUBIN,URINE NEGATIVE (Neg); CLARITY,URINE CLEAR (Clear); COLOR,URINE YELLOW (Yellow); GLUCOSE, URINE NEGATIVE (Neg); KETONES,URINE NEGATIVE (Neg); LEUKOCYTE ESTERASE ,URINE NEGATIVE (Neg); NITRITES, URINE NEGATIVE (Neg); OCCULT BLOOD,URINE NEGATIVE (Neg); PROTEIN,URINE TRACE mg/dl (Neg); UROBILINOGEN,URINE 0.2 E.U/dL (0.2-1.0)
[2024-04-30 15:17] LABS: SQUAMOUS EPITHELIAL CELL,UR MODERATE /LPF (FEW); UA COLLECTION TYPE CLN CATCH MIDSTREAM
[2024-04-30 15:18] LABS: BACTERIA,URINE NONE SEEN /HPF (Neg); WBC,URINE 0-4 /HPF (0-4)
[2024-04-30 15:53] VITALS: BP 116/88; PULSE 77; RESP 16; TEMP 98; O2SAT 98
== END 2024-04-30 15:56 | disposition home or self-care (01) ==
LOC: ER 12:26
DX: M54.59 Other low back pain (principal); E78.00 Pure hypercholesterolemia, unspecified; E03.9 Hypothyroidism, unspecified; G89.29 Other chronic pain; M54.9 Dorsalgia, unspecified; Z79.899 Other long term (current) drug therapy; Z79.52 Long term (current) use of systemic steroids
CPT/HCPCS: 36415; 80053; 81001; 82550; 85025; 93005; 96374; 99284; J2405

== ENCOUNTER 2024-05-03 12:54 | Emergency (ER) | payer MEDICARE, MEDICAID ==
[~2024-05-03] VITALS: Ht 160 cm; Wt 50.9 kg
[2024-05-03 15:54] VITALS: BP 149/108; PULSE 96; RESP 16; TEMP 97.5; O2SAT 97
[2024-05-03] MEDS ORDERED: HYDR-3686 PO (16:32)
[2024-05-03] MEDS: LORazepam 0.5 MG tablet PO STA (16:50)
== END 2024-05-03 16:57 | disposition home or self-care (01) ==
LOC: ER 12:55
DX: R06.02 Shortness of breath (principal); T38.0X6A Underdosing of glucocorticoids and synthetic analogues, initial encounter; F41.9 Anxiety disorder, unspecified; E78.00 Pure hypercholesterolemia, unspecified; E03.9 Hypothyroidism, unspecified; G89.29 Other chronic pain; M54.9 Dorsalgia, unspecified; Z79.899 Other long term (current) drug therapy; Y92.89 Other specified places as the place of occurrence of the external cause
CPT/HCPCS: 99283

== ENCOUNTER 2024-07-10 00:19 | Emergency (ER) | payer MEDICARE, MEDICAID ==
[~2024-07-10] VITALS: Ht 154.9 cm; Wt 54.4 kg
[~2024-07-10 00:19] MED LIST changes: -PRED20TA PO
[2024-07-10] MEDS: LORazepam 2 mg/ml vial IV ONE ×3 (00:56→01:41)
[2024-07-10] MEDS: LORazepam 2 mg/ml vial IM ONE (02:16)
[2024-07-10] MEDS: morphine 4 MG/ML inj SYRINge IM ONE (03:00)
[2024-07-10 05:11] LABS: BASOPHILS # (AUTO) 0.1 X10'3 (0-0.2); EOSINOPHILS # (AUTO) 0.3 X10'3 (0-0.9); MEAN PLATELET VOLUME 7.1 FL (7.4-10.4); MONOCYTES # (AUTO) 1.2 X10'3 (0-0.9)
[2024-07-10 05:17] LABS: BASOPHILS % (AUTO) 0.4 % (0-1); HEMATOCRIT 34.2 % (35.0-45.0); HEMOGLOBIN 11.2 g/dl (12.0-16.0); LYMPHOCYTES # (AUTO) 3.9 X10'3 (1.1-4.8); LYMPHOCYTES % (AUTO) 24.2 % (21-51); MEAN CORPUSCULAR HEMOGLOBIN 27.7 PG (27.0-31.0); MEAN CORPUSCULAR HGB CONC 32.8 g/dL (33.0-36.5); MEAN CORPUSCULAR VOLUME 84.6 FL (78-98); MONOCYTES % (AUTO) 7.6 % (2-12); NEUTROPHILS # (AUTO) 10.5 X10'3 (1.8-7.7); NEUTROPHILS % (AUTO) 65.8 % (42-75); PLATELET COUNT 563 X10'3 (140-440); RED BLOOD COUNT 4.04 X10'6 (4.20-5.60); RED CELL DISTRIBUTION WIDTH 20.1 % (11.5-14.5); WHITE BLOOD COUNT 15.9 X10'3 (4.5-11.0)
[2024-07-10 05:29] LABS: D-DIMER 0.61 MG/L FEU (0-0.50)
[2024-07-10 05:41] LABS: ALBUMIN 3.3 G/DL (3.4-5.0); ANION GAP 5 (8-16); BLOOD UREA NITROGEN 19 MG/DL (7-18); BUN/CREATININE RATIO 29.2 (10.0-20.0); CALCIUM 8.9 MG/DL (8.5-10.1); CHLORIDE 102 MMOL/L (99-107); CREATININE 0.65 MG/DL (0.40-0.90); GLUCOSE 112 MG/DL (70-104); POTASSIUM 3.8 MMOL/L (3.5-5.1); PRO BRAIN NATRIURETIC PEPTIDE 187 PG/ML (0-125); SODIUM 138 MMOL/L (135-145); TOTAL CARBON DIOXIDE 31.3 MMOL/L (24-32); eCRCL 71 ML/MIN; eGFR > 90 ML/MIN
[2024-07-10 05:42] LABS: ANISOCYTOSIS 2+; PLATELET ESTIMATE INCREASED; POLYCHROMASIA FEW
[2024-07-10 05:43] LABS: LARGE PLATELETS FEW; STOMATOCYTES 1+
[2024-07-10] MEDS ORDERED: iohexol 350MG/ML 100ml bottle IV ONE (06:06)
[2024-07-10 08:09] LABS: ETHANOL < 10 MG/DL (<10); MAGNESIUM 2.2 MG/DL (1.5-2.4)
[2024-07-10 10:22] LABS: BILIRUBIN,URINE NEGATIVE (Neg); CLARITY,URINE CLEAR (Clear); COLOR,URINE YELLOW (Yellow); GLUCOSE, URINE NEGATIVE (Neg); KETONES,URINE NEGATIVE (Neg); LEUKOCYTE ESTERASE ,URINE NEGATIVE (Neg); NITRITES, URINE NEGATIVE (Neg); OCCULT BLOOD,URINE TRACE-INTACT (Neg); PH,URINE 5.5 (4.8-8.0); PROTEIN,URINE 100 mg/dl (Neg); UROBILINOGEN,URINE 0.2 E.U/dL (0.2-1.0)
[2024-07-10 10:24] LABS: URINE AMPHETAMINE SCREEN NEGATIVE (Neg); URINE BARBITUATE SCREEN NEGATIVE (Neg); URINE BENZODIAZEPINES SCREEN NEGATIVE (Neg); URINE CANNABINOID SCREEN NEGATIVE (Neg); URINE COCAINE SCREEN NEGATIVE (Neg); URINE METHADONE SCREEN NEGATIVE (Neg); URINE OPIATE SCREEN POSITIVE (Neg); URINE PHENCYCLIDINE SCREEN NEGATIVE (Neg)
[2024-07-10 10:25] LABS: UA COLLECTION TYPE STRAIGHT CATH
[2024-07-10 10:29] LABS: BACTERIA,URINE NONE SEEN /HPF (Neg); MUCUS STRANDS NONE SEEN /LPF (Neg); RBC,URINE 0-2 /HPF (0-2); SQUAMOUS EPITHELIAL CELL,UR NONE SEEN /LPF (FEW); WBC,URINE 0-4 /HPF (0-4)
[2024-07-10 10:30] LABS: FINE GRANULAR CAST 0-3 /LPF (NEGATIVE); HYALINE CASTS 0-3 /LPF (NEGATIVE)
[2024-07-10] MEDS: dexamethasone sod phosphate 10mg/ml inj IV STA (11:13)
[2024-07-10] MEDS: HYDROmorphone 1 mg/ml syringe IV ONE (11:13)
[2024-07-10] MEDS: diazepam inj 5 MG/ML inj. IV ONE (11:14)
[2024-07-10 12:21] VITALS: BP 104/59; PULSE 106; RESP 16; TEMP 98.5; O2SAT 95
[2024-07-11] MEDS ORDERED: TRAZ-251 (07:27)
[2024-07-11] MEDS ORDERED: URSO300C2 (07:27)
[2024-07-11] MEDS ORDERED: ROPI0.5T37 (07:27)
[2024-07-11] MEDS ORDERED: LEVO112T5 (07:27)
[2024-07-11] MEDS ORDERED: MIDO5TAB4 (07:27)
[2024-07-11] MEDS ORDERED: LORA-269 (07:27)
[2024-07-11] MEDS ORDERED: MELO-100 (07:27)
== END 2024-07-10 11:40 | disposition home or self-care (01) ==
LOC: ER 00:20
DX: R06.02 Shortness of breath (principal); R00.0 Tachycardia, unspecified; F41.9 Anxiety disorder, unspecified; E78.00 Pure hypercholesterolemia, unspecified; E03.9 Hypothyroidism, unspecified; G89.29 Other chronic pain; M54.9 Dorsalgia, unspecified; J44.9 Chronic obstructive pulmonary disease, unspecified; Z79.899 Other long term (current) drug therapy; Z20.822 Contact with and (suspected) exposure to COVID-19
CPT/HCPCS: 36415; 70491; 71045; 71275; 80048; 80305; 81001; 83735; 83880; 84145; 84484; 85008; 85025; 85379; 87502; 87503; 87811; 93005; 96372; 96374; 96375; 96376; 99285; A4353; G0480; J1100; J1171; J2060; J2270; J3360; Q9967; 80320

== ENCOUNTER 2024-10-31 20:44 | Emergency (ER) | payer MEDICARE, MEDICAID ==
[~2024-10-31] VITALS: Ht 157.5 cm; Wt 55.9 kg
[~2024-10-31 20:44] MED LIST changes: -LEVO112C4 PO; +LEVO112C5 PO; +LEVO112T5; +LORA-269; +MELO-100; +MIDO5TAB4; +ROPI0.5T37; +TRAZ-251; +URSO300C2
--- NOTE | 2024-10-31 20:50 | ELECTROCARDIOGRAPH REPORT ---
[facility] Test Date: 2024-10-31 Test Time: 20:48:19 Pat Name: HELEN WRIGHT Department: EMERGENCY ROOM Room: Gender: F Handling Tech: EDEN : 1965 Requested By: KIRIT HONEYCUTT Order Number: [id number] Reading MD: Measurements Intervals [place] Rate: 98 P: 69 TN: 142 QRS: 58 QRSD: 95 T: 57 QT: 341 QTc: 436 Interpretive Statements Sinus rhythm Low voltage, precordial leads Probable anteroseptal infarct, old Please click the below link to view image of tracing.
[2024-10-31 21:27] LABS: EOSINOPHILS # (AUTO) 0.2 X10'3 (0-0.9); HEMOGLOBIN 10.6 g/dl (12.0-16.0); LYMPHOCYTES # (AUTO) 3.6 X10'3 (1.1-4.8); MEAN PLATELET VOLUME 6.6 FL (7.4-10.4); MONOCYTES # (AUTO) 1.1 X10'3 (0-0.9); WHITE BLOOD COUNT 9.7 X10'3 (4.5-11.0)
[2024-10-31 21:30] LABS: BASOPHILS # (AUTO) 0.1 X10'3 (0-0.2); BASOPHILS % (AUTO) 0.7 % (0-1); EOSINOPHILS % (AUTO) 1.9 % (0-6); HEMATOCRIT 32.9 % (35.0-45.0); LYMPHOCYTES % (AUTO) 37.1 % (21-51); MEAN CORPUSCULAR HEMOGLOBIN 24.4 PG (27.0-31.0); MEAN CORPUSCULAR HGB CONC 32.2 g/dL (33.0-36.5); MEAN CORPUSCULAR VOLUME 75.7 FL (78-98); MONOCYTES % (AUTO) 11.1 % (2-12); NEUTROPHILS # (AUTO) 4.8 X10'3 (1.8-7.7); NEUTROPHILS % (AUTO) 49.2 % (42-75); PLATELET COUNT 654 X10'3 (140-440); RED BLOOD COUNT 4.34 X10'6 (4.20-5.60); RED CELL DISTRIBUTION WIDTH 18.1 % (11.5-14.5)
[2024-10-31 21:44] LABS: ANISOCYTOSIS 2+; MICROCYTOSIS 1+; PLATELET ESTIMATE INCREASED
[2024-10-31 21:50] LABS: ALANINE AMINOTRANSFERASE 30 U/L (12-78); ALBUMIN 2.9 G/DL (3.4-5.0); ALBUMIN/GLOBULIN RATIO 0.5 (1.1-1.5); ALKALINE PHOSPHATASE 233 IU/L (46-116); ANION GAP 7 (8-16); ASPARTATE AMINO TRANSFERASE 27 U/L (10-37); BILIRUBIN,TOTAL 0.3 MG/DL (0.1-1.0); BLOOD UREA NITROGEN 14 MG/DL (7-18); BUN/CREATININE RATIO 16.1 (10.0-20.0); CALCIUM 9.5 MG/DL (8.5-10.1); CHLORIDE 106 MMOL/L (99-107); CREATININE 0.87 MG/DL (0.40-0.90); POTASSIUM 4.1 MMOL/L (3.5-5.1); PRO BRAIN NATRIURETIC PEPTIDE 154 PG/ML (0-125); SODIUM 141 MMOL/L (135-145); TOTAL CARBON DIOXIDE 27.7 MMOL/L (24-32); eCRCL 56 ML/MIN; eGFR 67 ML/MIN
[2024-10-31 21:58] LABS: GLUCOSE 97 MG/DL (70-104)
--- NOTE | 2024-10-31 22:20 | RADIOLOGY REPORT ---
Clinical History CP Comparison None Technique: frontal chest x-ray Without Contrast HELEN WRIGHT, [id number] Findings: Heart - normal lungs - no consolidation. bones - no acute fracture. Other- midline tracheostomy. Impression: 1. No acute cardiopulmonary disease This report was electronically signed by Jeff Mckenzie MD on 10/31/2024 10:16:48 PM.
[2024-11-01] MEDS: guaiFENesin ER 600mg tablet PO STA (02:02)
--- NOTE | 2024-11-01 02:19 | Physician Documentation ---
History of Present Illness ~ Chief Complaint: Shortness of Breath Stated Complaint: SOB Time Seen by MD: 22:09 Primary Medical Doctor: DR.PATEL NATI, IN [place], [place]. [place] [facility] [place] Mode of Arrival: POV HPI 59 year old female with recent replacement of her trach about one month ago. Since that time she reports frequent coughing and mucous production without signs of fever, N/V/D, sore throat, or other symptoms. 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 Denies any chest pain. Medication Reconciliation Allergies: Coded Allergies: mirtazapine (Verified Adverse Reaction, Unknown, dizzy/foggy brain, 10/31/24) Scheduled Cephalexin*Monohydrate* (Keflex*), 1 CAP PO QID Levothyroxine Sodium (Levothyroxine), 1 CAP PO DAILY, (Reported) Levothyroxine Sodium (Levothyroxine Sodium), 1 DAILY, (Reported) Meloxicam* (Meloxicam*), 1 DAILY, (Reported) Scheduled PRN Guaifenesin/Codeine Phosphate (Codeine-Guaifen 10-100 mg/5 ml), 5-10 ML PO Q4HPRN PRN for cough and congestion Hydrocodone Bit/Acetaminophen 5/325 MG ([place] 5/325 MG), 1 TAB PO Q6H PRN for pain Miscellaneous Medications Lorazepam (Ativan), (Reported) Midodrine HCl (Midodrine HCl), (Reported) Ropinirole Hcl (Ropinirole Hcl), (Reported) Trazodone HCl (Trazodone HCl), 1, (Reported) Ursodiol (Ursodiol), (Reported) Past Medical History Past Medical History: High Cholesterol, COPD, *HEMATOLOGY*, Hernia, Hypothyroidism, Chronic Pain, Chronic Back Pain, Anxiety Past Surgical History: other Other Past Surgical History: oopherectomy Other Past Family History: NONCONTRIBUTORY Alcohol Use: Rarely Drug Use: none Lives with: Family Lives In: Home Occupation: employed Review of Systems All Other Systems at this time: Reviewed and Negative Physical Exam Vital Signs: RN Vital Signs have been reviewed: Yes, Temperature: 98.1, Source: Oral, Heart Rate: 89, Respiratory Rate: 15, BP: 88/44, Pulse Oximetry: 98, Weight: 55.910 Oxygen Flow Rate: 0 Physical Exam HEENT: PERRL, moist oral mucosa, EOMI Pulmonary: No respiratory distress; occasional coughing Cardiac: RRR, no murmur, rub or gallop MSK: no deformity Skin: w/d/i, no rash Neuro: alert, nonfocal Psych: normal affect Progress Results/Orders Results/Orders Orders - KIRIT HONEYCUTT MD Chest,Single View (10/31/24 20:48) Monitor (10/31/24 20:48) Saline Lock (10/31/24 20:48) Oxygen (10/31/24 20:48) Culture Blood (10/31/24 20:57) Electrocardiogram (10/31/24 20:57) Hs Troponin I W Calculations (10/31/24 20:57) Hs Troponin I W Calculations (10/31/24 22:57) Rt Assessment/Protocol/Eval/Tx (10/31/24 ) Completed Orders - KIRIT HONEYCUTT MD Chest,Single View (10/31/24 20:48) Cbc/Diff (10/31/24 20:48) PBNP (10/31/24 20:48) Electrocardiogram (10/31/24 20:48) CMP (10/31/24 20:48) Procalcitonin (10/31/24 20:57) BMP (10/31/24 20:57) Lacticsepsis (10/31/24 20:57) PBNP (10/31/24 20:57) * Rt Notification Q1H (10/31/24 22:45) * May Nt Suction For Clearing (11/01/24 01:06) Guaifenesin Er Tablet (Mucinex Tablet) (11/01/24 08:00) Guaifenesin Er Tablet (Mucinex Tablet) (11/01/24 01:50) Hydrocodone/Apap 5/325mg Tab ([place] (11/01/24 02:05) Cephalexin Capsule (Keflex Capsule) (11/01/24 02:35) Vital Signs 10/31/24 10/31/24 10/31/24 11/01/24 20:52 22:13 23:00 02:28 Temp 97.5 98.1 Pulse 112 89 Resp 22 16 15 16 B/P (MAP) 116/72 88/44 (59) Pulse Ox 97 98 O2 Flow Rate 0 11/01/24 11/01/24 02:29 02:30 Temp 98.3 Pulse 95 Resp 16 16 B/P (MAP) 120/74 Pulse Ox 99 Laboratory Tests Test 10/31/24 21:09 White Blood Count 9.7 Red Blood Count 4.34 Hemoglobin 10.6 L Hematocrit 32.9 L Mean Corpuscular Volume 75.7 L Mean Corpuscular Hemoglobin 24.4 L Mean Corpuscular Hemoglobin Concent 32.2 L Red Cell Distribution Width 18.1 H Platelet Count 654 H Mean Platelet Volume 6.6 L Neutrophils (%) (Auto) 49.2 Lymphocytes (%) (Auto) 37.1 Monocytes (%) (Auto) 11.1 Eosinophils (%) (Auto) 1.9 Basophils (%) (Auto) 0.7 Neutrophils # (Auto) 4.8 Lymphocytes # (Auto) 3.6 Monocytes # (Auto) 1.1 H Eosinophils # (Auto) 0.2 Basophils # (Auto) 0.1 CBC Comment Platelet Estimate Increased Red Blood Cell Morphology Perf Basophilic Stippling Anisocytosis 2+ Microcytosis 1+ Sodium Level 141 Potassium Level 4.1 Chloride Level 106 Carbon Dioxide Level 27.7 Anion Gap 7 L Blood Urea Nitrogen 14 Creatinine 0.87 Estimated GFR/1.73 m2 67 BUN/Creatinine Ratio 16.1 Glucose Level 97 Lactic Acid Level 1.5 Calcium Level 9.5 Total Bilirubin 0.3 Aspartate Amino Transf (AST/SGOT) 27 Alanine Aminotransferase (ALT/SGPT) 30 Alkaline Phosphatase 233 H Pro-B-Type Natriuretic Peptide 154 H Total Protein 9.0 H Albumin 2.9 L Globulin 6.1 H Albumin/Globulin Ratio 0.5 L Procalcitonin < 0.05 Chemistry Comments Microbiology Date/Time Source Procedure Growth Status 10/31/24 23:14 Blood Hand Left Blood Culture - Preliminary NO GROWTH AFTER 1 DAY Resulted Medical Decision Making Findings 59 year old female with recent trach replacement. Trach does not appear abnormal, trach site appears well-healing. CXR and workup largely negative for acute findings. Had respiratory therapist see and evaluate patient and provided advice regarding humidified air, etc. Advised follow up with deputy controller who placed trach and will prescribe cough medication as the patient's cough is quite frequent. Return precautoins. Differential Dx:Considerations: Include: bronchitis, COPD, pneumonia, pneu monitis, pulmonary embolism, respiratory distress, respiratory failure Departure Disposition: 01 HOME / SELF CARE / HOMELESS Impression: Primary Impression: Cough Condition: Stable Discharge Instructions: How to Clean a Tracheostomy Tube, Adult Referrals: NO PRIMARY CARE PROVIDER (PCP) Prescriptions Cephalexin*Monohydrate* (Keflex*) 500 Mg Capsule 1 CAP PO QID for 7 Days, #28 CAP Prov: KIRIT HONEYCUTT MD 11/01/24 Guaifenesin/Codeine Phosphate (Codeine-Guaifen 10-100 mg/5 ml) 10 Mg-100 Mg/5 Ml Liquid 5-10 ML PO Q4HPRN PRN for cough and congestion for 4 Days, #240 ML 0 Refills Prov: KIRIT HONEYCUTT MD 11/01/24 Education Educated: Patient Educated regarding: diagnosis, treatment, prognosis, need for follow up Signature Scribe Signature: . Attestation: . KIRIT HONEYCUTT MD November 01, 2024 02:19
[2024-11-01] MEDS ORDERED: GUAI120L55 PO (02:21)
[2024-11-01] MEDS: HYDROcodone/acetaminophen 5mg/325mg tablet PO ONE (02:28)
[2024-11-01 02:30] VITALS: BP 120/74; PULSE 95; RESP 16; TEMP 98.3; O2SAT 99
[2024-11-01] MEDS ORDERED: CEPH-585 PO (02:33)
[2024-11-01] MEDS ORDERED: cephalexin 250mg capsule PO ONE (02:35)
[2024-11-01] MEDS ORDERED: guaiFENesin ER 600mg tablet PO SCH (08:00)
== END 2024-11-01 02:35 | disposition home or self-care (01) ==
LOC: ER 20:44
DX: R05.9 Cough, unspecified (principal); E03.9 Hypothyroidism, unspecified; E78.00 Pure hypercholesterolemia, unspecified; J44.9 Chronic obstructive pulmonary disease, unspecified
CPT/HCPCS: 36415; 71045; 80053; 83605; 83880; 84145; 85008; 85025; 87040; 93005; 99285

== ENCOUNTER 2025-01-08 16:45 | Emergency (ER) | payer MEDICARE, MEDICAID ==
[~2025-01-08] VITALS: Ht 157.5 cm; Wt 55.8 kg
[~2025-01-08 16:45] MED LIST changes: +GUAI120L55 PO
--- NOTE | 2025-01-08 19:16 | Physician Documentation ---
History of Present Illness ~ Chief Complaint: Cold, cough & congestion Stated Complaint: "I THINK I HAVE COVID" Time Seen by MD: 19:12 Primary Medical Doctor: NATI, , [place], Dr. Martin [facility] [place] Patient is seen today with complaints of feeling like she has COVID-19. Patient states she has had cough and cold-like symptoms with runny nose and sore throat with body aches and fever and chills for the last four days. Patient states she just needs tested for COVID because he is trying to go to [place] for an appointment. She denies any shortness of breath or abdominal pain and has no other concern or complaint at this time. Medication Reconciliation Allergies: Coded Allergies: mirtazapine (Verified Adverse Reaction, Unknown, dizzy/foggy brain, 01/08/25) Scheduled Levothyroxine Sodium (Levothyroxine), 1 CAP PO DAILY, (Reported) Levothyroxine Sodium (Levothyroxine Sodium), 1 DAILY, (Reported) Meloxicam* (Meloxicam*), 1 DAILY, (Reported) Scheduled PRN Guaifenesin/Codeine Phosphate (Codeine-Guaifen 10-100 mg/5 ml), 5-10 ML PO Q4HPRN PRN for cough and congestion Hydrocodone Bit/Acetaminophen 5/325 MG ([place] 5/325 MG), 1 TAB PO Q6H PRN for pain Miscellaneous Medications Lorazepam (Ativan), (Reported) Midodrine HCl (Midodrine HCl), (Reported) Ropinirole Hcl (Ropinirole Hcl), (Reported) Trazodone HCl (Trazodone HCl), 1, (Reported) Ursodiol (Ursodiol), (Reported) Past Medical History Past Medical History: High Cholesterol, COPD, *HEMATOLOGY*, Hernia, Hypothyroidism, Chronic Pain, Chronic Back Pain, Anxiety Past Surgical History: other Other Past Surgical History: oopherectomy Other Past Family History: NONCONTRIBUTORY Alcohol Use: Rarely Drug Use: none Lives with: Family Lives In: Home Occupation: employed Review of Systems Constitutional: Denies: chills, fever, weakness Eyes: Denies: pain, blurred vision ENT: Denies: ear pain, nose pain, throat pain, mouth pain Respiratory: Denies: cough, shortness of breath Cardiovascular: Denies: chest pain, palpitations Gastrointestinal: Denies: abdominal pain, nausea, vomiting Genitourinary: Denies: burning, dysuria Female Genitalia: Denies: vaginal discharge, pelvic pain Neurological: Denies: headache, dizziness Musculoskeletal: Denies: pain, swelling Integumentary: Denies: rash, lesions Allergic/Immunologic: Denies: hives, itching Hematologic/Lymphatic: Denies: no symptoms reported Psychiatric: Denies: depression, anxiety Physical Exam Vital Signs: Temperature: 98.3, Source: Oral, Heart Rate: 91, Respiratory Rate: 16, BP: 108/70, Pulse Oximetry: 99, Weight: 55.800 Oxygen Flow Rate: 0 Physical Exam General: Awake and Alert, no acute distress. Patient is ill-appearing HEENT: Conjunctiva pink, Sclera clear, Mucus Membranes moist. Neck: Supple without masses and tenderness. Resp: Unlabored. Lungs clear to auscultation bilaterally. Heart: Regular Rate and rhythm, normal S1 and S2 without murmur, rub or gallop. Abdomen: Soft and non tender no organomegaly Extremities: No cyanosis,clubbing or edema. Skin: Warm and Dry. Progress Results/Orders Results/Orders Orders - KYREE PRICE PAC Covid19 Binax Poc Result Entry (01/08/25 18:51) Vital Signs 01/08/25 01/08/25 01/08/25 17:10 19:22 19:24 Temp 98.3 98.7 Pulse 91 76 Resp 16 16 16 B/P (MAP) 108/70 106/55 (72) Pulse Ox 99 100 O2 Flow Rate 0 0 Laboratory Tests Test 01/08/25 19:10 SARS-CoV-2 Antigen (Rapid) Negative Medical Decision Making Findings Patient is seen today with complaints of feeling like she has COVID-19. Patient states she has had cough and cold-like symptoms with runny nose and sore throat with body aches and fever and chills for the last four days. Patient states she just needs tested for COVID because he is trying to go to [place] for an appointment. She denies any shortness of breath or abdominal pain and has no other concern or complaint at this time. Patient did have COVID testing done today and was negative. Patient will continue with conservative treatment with increase rest and fluids and treat symptomatically with Mucinex DM and Tylenol and ibuprofen as needed. Patient will follow up with primary care in 3-5 days if no better as needed sooner. Return to ED with any worsening, concerning or changing symptoms. Departure Disposition: 01 HOME / SELF CARE / HOMELESS Impression: Primary Impression: Cough Qualified Codes: R05.1 - Acute cough Condition: Stable Discharge Instructions: Upper Respiratory Infection, Adult Additional Instructions: Patient did have COVID testing done today and was negative. Patient will continue with conservative treatment with increase rest and fluids and treat symptomatically with Mucinex DM and Tylenol and ibuprofen as needed. Patient will follow up with primary care in 3-5 days if no better as needed sooner. Return to ED with any worsening, concerning or changing symptoms. Referrals: NO PRIMARY CARE PROVIDER (PCP) Signature Scribe Signature: No scribe Attestation: No scribe KYREE PRICE PAC Jan 08, 2025 19:16
[2025-01-08 19:22] VITALS: BP 106/55; PULSE 76; TEMP 98.7; O2SAT 100
[2025-01-08 19:24] VITALS: RESP 16
== END 2025-01-08 19:55 | disposition home or self-care (01) ==
LOC: ER 16:46
DX: R05.9 Cough, unspecified (principal); R09.89 Other specified symptoms and signs involving the circulatory and respiratory systems; R50.9 Fever, unspecified; E03.9 Hypothyroidism, unspecified; E78.00 Pure hypercholesterolemia, unspecified; J44.9 Chronic obstructive pulmonary disease, unspecified; Z88.8 Allergy status to other drugs, medicaments and biological substances; Z20.822 Contact with and (suspected) exposure to COVID-19
CPT/HCPCS: 36415; 87811; 99283

== ENCOUNTER 2025-02-16 19:25 | Emergency (ER) | payer MEDICARE, MEDICAID ==
[~2025-02-16] VITALS: Ht 154.9 cm; Wt 50.0 kg
--- NOTE | 2025-02-16 20:17 | Physician Documentation ---
History of Present Illness ~ Chief Complaint: See Chief Complaint Stated Complaint: DIFF BREATHING Time Seen by MD: 20:16 OK to notify your PCP?: Yes Primary Medical Doctor: DR.PATEL NATI, IN [place], Dr. 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 and for the last 3-4 days the insufflation balloon in the trach has been leaking. She went to [facility] today where ENT replaced the tracheostomy. Unfortunately they did not give any supplies. Patient has some dried blood at swollen it is tender it is painful. Patient states that it cause some pain during the procedure. She is a very anxious. She is here requesting re-evaluation and trach placement. Patient reports the pain is moderate to severe. She denies any shortness of breath or chest pain. Medication Reconciliation Allergies: Coded Allergies: mirtazapine (Verified Adverse Reaction, Unknown, dizzy/foggy brain, 01/08/25) Scheduled Levothyroxine Sodium (Levothyroxine), 1 CAP PO DAILY, (Reported) Levothyroxine Sodium (Levothyroxine Sodium), 1 DAILY, (Reported) Meloxicam* (Meloxicam*), 1 DAILY, (Reported) Scheduled PRN Guaifenesin/Codeine Phosphate (Codeine-Guaifen 10-100 mg/5 ml), 5-10 ML PO Q4HPRN PRN for cough and congestion Hydrocodone Bit/Acetaminophen 5/325 MG ([place] 5/325 MG), 1 TAB PO Q6H PRN for pain Miscellaneous Medications Lorazepam (Ativan), (Reported) Midodrine HCl (Midodrine HCl), (Reported) Ropinirole Hcl (Ropinirole Hcl), (Reported) Trazodone HCl (Trazodone HCl), 1, (Reported) Ursodiol (Ursodiol), (Reported) Past Medical History Past Medical History: High Cholesterol, COPD, *HEMATOLOGY*, Hernia, Hypothyroidism, Chronic Pain, Chronic Back Pain, Anxiety Past Surgical History: other Other Past Surgical History: oopherectomy Other Past Family History: NONCONTRIBUTORY Alcohol Use: Rarely Drug Use: none Lives with: Family Lives In: Home Occupation: employed Review of Systems All Other Systems at this time: Reviewed and Negative Physical Exam Vital Signs: RN Vital Signs have been reviewed: Yes, Temperature: 98.1, Source: Oral, Heart Rate: 89, Respiratory Rate: 21, BP: 104/62, Pulse Oximetry: 98, Weight: 50.000 Physical Exam General: The patient is well developed, well nourished, nontoxic appearing and is in no acute distress. Anxious Skin: [place], warm and dry with no rashes. HEENT: Head was normocephalic and atraumatic. Eyes - pupils equal, round, reactive to light and accommodation. Extraocular movements were intact. Conju nctivae were nonicteric. l. The mouth and oropharynx were clear with moist mucous membranes. Neck: Supple and tender with new tracheostomy in place. There was dry blood around the neck area no active bleeding. The tracheostomy is patent. There was no jugular venous distention, lymphadenopathy, thyromegaly or masses. Chest: Clear to auscultation bilaterally without wheezes, rales or rhonchi. No accessory muscle use. Heart: Rate regular and rhythmic. S1, S2. No murmurs. Palpation of the chest wall was normal. Abdomen: Soft, nontender and nondistended. Positive bowel sounds. No guarding or rebound. Progress Results/Orders Reviewed/noted all lab results: Yes Results/Orders Orders - SANJEEV WALL MD Lorazepam Tablet (Ativan Tablet) (02/16/25 20:25) Vital Signs 02/16/25 02/16/25 02/16/25 19:35 19:41 19:43 Temp 98.1 Pulse 88 89 Resp 17 21 B/P (MAP) 104/62 (76) Pulse Ox 97 98 Re-Evaluation Re-Evaluation : Re-Evaluation: Improved Progress Patient was seen and examined. Patient is given reassurance. Patient just had a new procedure. She refused CAT scan to see if there was any soft tissue swelling. Patient was given anti-inflammatories IM. As well as Ativan for anxiety. Patient will follow up with her outpatient ENT for supplies. If she has any worsening symptoms to return to the ER for any other complaints or concerns. Patient's airway is stable. Since there was no active bleeding no x- ray was ordered. Patient was offered anti inflammation medications she does not want pills she does not want shots since she does not have an IV. Also offered was cat scan of the neck to make sure there was no damage from the procedure at [facility] but she is refusing CAT scan states she has had too many. Patient was ultimately offered an Ativan for anxiety and to follow up with her ENT. Pulse oximetry monitor interpretation shows normal oxygenation at 98% room air, normal, my interpretation. Medical Decision Making Additional info obtained from: old records Throat Diff Dx: Considerations: Include: Peritonsillar abscess, Peritonsillar cellulitis, Other Departure Disposition: HOME / SELF CARE / HOMELESS Impression: Primary Impression: Postoperative pain Additional Impression: Tracheostomy complication Qualified Codes: J95.09 - Other tracheostomy complication Referrals: NO PRIMARY CARE PROVIDER (PCP) Education Educated: Patient Educated regarding: diagnosis, treatment, prognosis, need for follow up, other Signature Scribe Signature: x Attestation: The note accurately reflects work and decisions made by me.Sanjeev Wall MD 02/16/25 20:17 SANJEEV WALL MD Feb 16, 2025 20:17
[2025-02-16 21:39] VITALS: BP 96/58; PULSE 78; RESP 15; TEMP 98.1; O2SAT 100
== END 2025-02-16 21:41 | disposition home or self-care (01) ==
LOC: ER 19:26
DX: G89.18 Other acute postprocedural pain (principal); J95.09 Other tracheostomy complication; E03.9 Hypothyroidism, unspecified; E78.00 Pure hypercholesterolemia, unspecified; J44.9 Chronic obstructive pulmonary disease, unspecified
CPT/HCPCS: 99284